=== PATIENT | female | born 1985 | race African-American/Black ===

== ENCOUNTER → 2017-05-09 | Outpatient (CLI) | payer BC ==
[~2017-05-09] MED LIST: ADVA250A INH; ALBU6.7H INH; CLON-352 PO; DOXY100T PO; FERR325T PO; FLOV220A INH; FURO20 PO; GABA100C4 PO; GLUCTAB PO; HYDR-3533 PO; IBUP600T26 PO; LISI-366 PO; OMEP20CA5 PO; PRED50 PO; SERT100 PO; SIMV20 PO; WAL-10TA2 PO
[2017-05-09 10:33] LABS: AUTOMATED NEUTROPHIL # 9.5 TH/MM3 (1.8-7.7); BASOPHIL # 0.1 TH/MM3 (0-0.2); BASOPHIL % 0.6 % (0.0-2.0); EOSINOPHIL # 0.1 TH/MM3 (0-0.4); EOSINOPHIL % 0.9 % (0.0-4.0); HEMATOCRIT 32.6 % (35.0-46.0); HEMO FLAGS DIFF FINAL; LYMPH % 13.3 % (9.0-44.0); LYMPHOCYTE # 1.6 TH/MM3 (1.0-4.8); MEAN CELL VOLUME 82.6 FL (80.0-100.0); MEAN CORPUSCULAR HGB CONC 31.4 % (32.0-36.0); MONO % 6.8 % (0.0-8.0); NEUT % 78.4 % (16.0-70.0); PLATELET COUNT 466 TH/MM3 (150-450); RED BLOOD COUNT 3.95 MIL/MM3 (4.00-5.30); RED CELL DISTRIBUTION WIDTH 15.8 % (11.6-17.2); WHITE BLOOD COUNT 12.2 TH/MM3 (4.0-11.0)
[2017-05-09 10:56] LABS: BACTERIA, URINE FEW /hpf; BLOOD, URINE NEG (NEG); GLUCOSE,URINE TRACE mg/dL (NEG); KETONE, URINE NEG (NEG); MUCUS URINE FEW /lpf (OCC); NITRITE,URINE NEG (NEG); PH, URINE 6.5 (5.0-8.5); SQUAMOUS EPITHELIAL CELL URINE 9 /hpf (0-5); URINE COLOR YELLOW (YELLW/STRAW)
[2017-05-09 10:59] LABS: ANION GAP 5 MEQ/L (5-15); AST (GOT) 8 U/L (15-37); BICARBONATE 30.6 MEQ/L (21.0-32.0); BLOOD UREA NITROGEN 11 MG/DL (7-18); CHLORIDE 101 MEQ/L (98-107); GLOMERULAR FILTRATION RATE 102 ML/MIN (>89); GLUCOSE,FASTING 193 MG/DL (74-99); POTASSIUM 4.1 MEQ/L (3.5-5.1); SODIUM (NA) 137 MEQ/L (136-145); THYROXINE (T4) 8.4 MCG/DL (4.8-13.9)
[2017-05-09 11:25] LABS: ALKALINE PHOSPHATASE 34 U/L (45-117); ALT (GPT) 14 U/L (10-53); FERRITIN 47 NG/ML (8-252); FREE T3 2.64 PG/ML (2.18-3.98); HDL CHOLESTEROL 46.4 MG/DL (40.0-60.0); LDL CHOLESTEROL 149 MG/DL (0-99); TOTAL BILIRUBIN ADULT 0.3 MG/DL (0.2-1.0); TRANSFERRIN IRON PROFILE 223 MG/DL (200-360)
[2017-05-09 11:51] LABS: HEMOGLOBIN A1a 1.1 %; HEMOGLOBIN A1b 1.5 %; HEMOGLOBIN Ao 84.9 %; HEMOGLOBIN LA1C 2.5 %; HEMOGLOBIN P3 3.6 %
[2017-05-10 23:50] LABS: THYROGLOB ABS LESS THAN 1 IU/mL (< OR = 1)
== END ==
LOC: CLAB 09:32
PROVIDERS: ATTEND Family Medicine
DX: R53.83 Other fatigue (principal); I10 Essential (primary) hypertension; M54.5 Low back pain; R73.09 Other abnormal glucose; D64.9 Anemia, unspecified; Z00.00 Encounter for general adult medical examination without abnormal findings
CPT/HCPCS: 36415; 80053; 80061; 81001; 82306; 82607; 82728; 82746; 83036; 83540; 83550; 84436; 84443; 84481; 85025; 86376; 86800; 87086

== ENCOUNTER 2017-09-07 20:43 | Emergency (ER) | payer BC ==
[~2017-09-07] VITALS: Ht 162.6 cm; Wt 153.0 kg
[2017-09-07 20:50] VITALS: BP 173/86; PULSE 91; RESP 18; TEMP 98.6; O2SAT 98
[2017-09-07] MEDS ORDERED: VALS1TAB64 PO (21:10)
[2017-09-07] MEDS ORDERED: PANT40TA3 PO (21:10)
[2017-09-07] MEDS ORDERED: AMLO5TAB2 PO (21:10)
[2017-09-07] MEDS ORDERED: BUPR150XL PO (21:10)
--- NOTE | 2017-09-07 21:31 | PD ---
HPI Chief Complaint: Anxiety Time Seen by Provider: 21:11 Travel History International Travel<30 days: No Contact w/Intl Traveler<30days: No Traveled to known affect area: No History of Present Illness HPI The patient was seen and examined in the presence of the nurse. This patient complains of anxiety. She says she was having an anxiety attack earlier but it is largely abated at this time. No chest pain or syncope. Symptoms severity at this time is mild PFSH Past Medical History Anemia: Yes Asthma: Yes Blood Disorders: No Bipolar Disorder: Yes Anxiety: Yes Cardiovascular Problems: Yes (HTN) High Cholesterol: Yes Diabetes: Yes Patient Takes Glucophage: No Diminished Hearing: No Endocrine: No Gastrointestinal Disorders: No Genitourinary: No Headaches: Yes Hypertension: Yes Immune Disorder: No Implanted Vascular Access Dvce: No Musculoskeletal: No Neurologic: Yes Psychiatric: No Reproductive: No Respiratory: Yes (Asthma) Immunizations Current: Yes Thyroid Disease: No Tetanus Vaccination: Unknown Influenza Vaccination: No PNEUMOCCOCAL Vaccine (Year): 2 ?: Not : 1 Para: 1 Miscarriage: 0 : 0 Past Surgical History AICD: No Arteriovenous Shunt: No Section: Yes Cholecystectomy: Yes Gynecologic Surgery: Yes () Insulin Pump: No Joint Replacement: No Pacemaker: No Other Surgery: Yes Social History Alcohol Use: Yes (OCCASIONAL) Tobacco Use: No Substance Use: No Allergies-Medications (Allergen,Severity, Reaction): Coded Allergies: penicillin G (Unverified Allergy, Severe, BRAKE OUT IN RASH, 03/18/17) Reported Meds & Prescriptions Reported Meds & Active Scripts Active Advair Diskus Inh (Fluticasone-Salmeterol Inh) 250-50 Mcg/Blist Aer 1 Puff INH BID Rinse mouth after use. Proventil Hfa 6.7 GM Inh (Albuterol Sulfate) 90 Mcg/Act Aer 1 Puff INH Q4H PRN Reported Amlodipine (Amlodipine Besylate) 5 Mg Tab 5 Mg PO DAILY Pantoprazole (Pantoprazole Sodium) 40 Mg Tab 40 Mg PO DAILY Valsartan 80 Mg Tab 80 Mg PO DAILY Wellbutrin Xl 24 HR (Bupropion HCl) 150 Mg Tab 150 Mg PO DAILY Review of Systems General / Constitutional: No: Fever Eyes: No: Visual changes HENT: No: Headaches Cardiovascular: No: Chest Pain or Discomfort Respiratory: No: Shortness of Breath Gastrointestinal: No: Abdominal Pain Genitourinary: No: Dysuria Musculoskeletal: No: Pain Skin: No Rash Neurologic: No: Weakness Psychiatric: Positive: Anxiety, No: Depression Endocrine: No: Polydipsia Hematologic/Lymphatic: No: Easy Bruising Physical Exam Narrative CARDIOVASCULAR: Regular rate and rhythm without murmur. Extremities showed no edema or varicosities. Psych: Normal mood and affect. Normal insight and judgment. RESPIRATORY: Respiratory effort unlabored, no retractions or use of accessory muscles. Breath sounds are clear and symmetric. Data Data Last Documented VS Vital Signs Date Time Temp Pulse Resp B/P (MAP) Pulse Ox O2 Delivery O2 Flow Rate FiO2 09/07/17 20:50 98.6 91 18 173/86 (115) 98 MDM Medical Decision Making Medical Screen Exam Complete: Yes Emergency Medical Condition: Yes Medical Record Reviewed: Yes Differential Diagnosis Anxiety, panic, depression Narrative Course I have reviewed the patient's electronic medical record. She requests something for anxiety. I wrote some as needed Vistaril Diagnosis Primary Impression: Anxiety Additional Instructions: The patient was advised to follow up with their physician and return if they worsen. The patient was warned about potential sedation for the medications they will receive on prescription. Med/Other Pt SpecificInfo: Prescription(s) given Disposition: 01 DISCHARGE HOME Condition: Stable Augustin Bryant MD Sep 07, 2017 21:31
[2017-09-07] MEDS ORDERED: VIST25CA PO (21:32)
== END 2017-09-07 21:58 | disposition home or self-care (01) ==
LOC: PHEFT 20:43
DX: F41.9 Anxiety disorder, unspecified (principal); D64.9 Anemia, unspecified; J45.909 Unspecified asthma, uncomplicated; F31.9 Bipolar disorder, unspecified; I10 Essential (primary) hypertension; E78.00 Pure hypercholesterolemia, unspecified; E11.9 Type 2 diabetes mellitus without complications; Z79.51 Long term (current) use of inhaled steroids; Z79.899 Other long term (current) drug therapy
CPT/HCPCS: 99283